=== PATIENT | male | born 1965 | race Two or more races ===

== ENCOUNTER → 2022-06-03 08:33 | Outpatient (CLI) | payer OTHER | END | disposition home or self-care (01) | LOC: LAB 08:33 | DX: B18.2 Chronic viral hepatitis C (principal) ==

== ENCOUNTER 2022-06-03 09:02 | Outpatient (CLI) | payer OTHER | END 2022-06-03 09:07 | disposition home or self-care (01) | LOC: SONOGRAMA 09:02 | DX: B18.2 Chronic viral hepatitis C (principal) ==

== ENCOUNTER 2022-08-22 08:56 | Outpatient (CLI) | payer OTHER | END 2022-08-22 09:04 | disposition home or self-care (01) | LOC: LAB 08:56 | DX: I70.0 Atherosclerosis of aorta (principal); S80.911A Unspecified superficial injury of right knee, initial encounter ==

== ENCOUNTER 2024-05-08 08:00 | Outpatient (CLI) | payer OTHER ==
[~2024-05-08] VITALS: Ht 182.9 cm; Wt 99.8 kg
[2024-05-08] MEDS ORDERED: COZAAR100 MG PO (10:27)
[2024-05-08] MEDS ORDERED: METADONA PO (10:27)
[2024-05-08] MEDS ORDERED: ZEGERID 40 MG1 EACH PO (10:27)
[2024-05-08 10:31] VITALS: BP 153/82
[2024-05-15 10:14] LABS: RH POSITIVE
== END 2024-05-08 14:24 | disposition home or self-care (01) ==
LOC: EKG 08:00 → LAB 08:00 → SURH 05-16 07:00 → EDSTATUS 05-16 11:45 → SURH 05-16 11:45 → LAB 06-03 11:24 → EDSTATUS 06-03 11:45 → SURH 06-03 11:45
PROVIDERS: ATTEND Orthopaedic Surgery
DX: M17.12 Unilateral primary osteoarthritis, left knee (principal)

== ENCOUNTER 2024-07-18 09:45 | Inpatient (IN) | payer OTHER ==
[~2024-07-18] VITALS: Ht 182.9 cm; Wt 98.0 kg
[~2024-07-18 09:45] MED LIST: COZAAR100 MG PO; METADONA PO; ZEGERID 40 MG1 EACH PO
[2024-07-18] MEDS ORDERED: JARDIANCE25 MG PO (10:54)
[2024-07-18] MEDS ORDERED: NIFEDIPINE20 MG PO (10:55)
[2024-07-18] MEDS ORDERED: OMEPRAZOLE40 MG PO (10:55)
[2024-07-18] MEDS ORDERED: GLUMETZA500 MG PO (10:55)
[2024-07-18 10:58] VITALS: BP 126/85
[2024-07-25] MEDS ORDERED: KETOROLAC TROMETHAMINE 60 MG VIAL IM ONE (12:00)
[2024-07-25] MEDS ORDERED: LIDOCAINE HCL 1%/EPINEPHRINE 20ML VIAL IJ ONE (12:00)
[2024-07-25] MEDS ORDERED: VANCOMYCIN HCL 1,000 MG in 0.9 % SODIUM CHLORIDE 250 ML IR ONE (12:00)
[2024-07-25] MEDS ORDERED: TRANEXAMIC ACID 1,000 MG in 0.9 % SODIUM CHLORIDE 100 ML IV ONE (12:00)
[2024-07-25] MEDS ORDERED: CEFAZOLIN SODIUM 2,000 MG in 0.9 % SODIUM CHLORIDE 100 ML IV ONE (12:00)
[2024-07-25] MEDS ORDERED: MORPHINE SULFATE 4 MG/ML VIAL IV ONE ×2 (12:00→13:20)
[2024-07-25] MEDS ORDERED: BUPIVACAINE HCL 30 ML VIAL IJ ONE (12:00)
[2024-07-25] MEDS ORDERED: MORPHINE SULFATE 4 MG/ML CARTRIDGE IV PRN (12:45)
[2024-07-25] MEDS ORDERED: SODIUM CHLORIDE 0.45 % 1,000 ML IV SCH (12:45)
[2024-07-25] MEDS ORDERED: ONDANSETRON HCL 2 MG/ML VIAL IV PRN (12:45)
[2024-07-25] MEDS ORDERED: OxyCODONE HCL 5 MG TABLET (ROXICODONE) PO PRN (12:45)
[2024-07-25] MEDS ORDERED: GABAPENTIN 300 MG CAPSULE PO ONE (16:58)
[2024-07-25] MEDS ORDERED: CEFAZOLIN SODIUM 1,000 MG VIAL ONE (16:58)
[2024-07-25] MEDS ORDERED: GABAPENTIN 300 MG CAPSULE PO SCH (17:00)
[2024-07-25] MEDS ORDERED: CEFAZOLIN SODIUM 1,000 MG VIAL IV SCH (17:00)
[2024-07-25] MEDS ORDERED: ACETAMINOPHEN 500 MG GEL..CAP PO SCH (18:00)
[2024-07-26 00:29] VITALS: BP 140/85; O2SAT 95
[2024-07-26] MEDS ORDERED: PERCOCET 5-3251 EACH PO (07:22)
[2024-07-26] MEDS ORDERED: CEFADROXIL500 MG PO (07:22)
[2024-07-26] MEDS ORDERED: ELIQUIS2.5 MG PO (07:22)
[2024-07-26 08:00] VITALS: BP 150/90; O2SAT 95
[2024-07-26] MEDS ORDERED: APIXABAN 2.5 MG TABLET PO SCH (09:00)
[2024-07-26] MEDS ORDERED: SENNOSIDES 1 TAB TABLET PO SCH (09:00)
[2024-07-26 09:30] LABS: HEMATOCRIT 34.2 % (39.0-48.0); HEMOGLOBIN 11.3 g/dL (13-16.00); MEAN CORPUSCULAR HEMOGLOBIN 32.2 pg (27.00-32.0); MEAN CORPUSCULAR HGB CONC 32.9 g/dl (32.0-36.0); PLATELET COUNT 204 K/uL (150-450); RED BLOOD COUNT 3.49 M/uL (4.00-6.00); RED CELL DISTRIBUTION WIDTH 13.9 % (11.5-14.5)
[2024-07-26] MEDS ORDERED: INSULIN LISPRO 1,000 UNIT/10 ML UNITS SUBCUTANEO PRN (12:45)
[2024-07-26] MEDS ORDERED: DEXTROSE 50 % IN WATER 0.5 G/ML DISP.SYRIN IV PRN (12:45)
[2024-07-26] MEDS ORDERED: ENALAPRILAT DIHYDRATE 1.25 MG/ML VIAL IV PRN (12:45)
[2024-07-26] MEDS ORDERED: LOSARTAN POTASSIUM 100 MG TABLET PO NR (13:00)
[2024-07-26] MEDS ORDERED: NIFEDIPINE 20 MG CAPSULE PO NR (13:00)
[2024-07-26 13:08] LABS: ALBUMIN 2.6 gm/dL (3.4-5.0); BILIRUBIN TOTAL 0.65 mg/dL (0.3-1.2); CALCIUM 8.6 mg/dL (8.5-10.1); CREATININE SERUM 1.07 mg/dL (0.70-1.30); GFR 70.74; GLOBULINA 4.2 G/DL (2.4-3.5); POTASSIUM 4.48 mEq/L (3.5-5.1); TOTAL PROTEIN 6.8 gm/dL (6.4-8.2)
[2024-07-26] MEDS ORDERED: TAMSULOSIN HCL 0.4 MG CAP PO STA (14:56)
[2024-07-26] MEDS ORDERED: VITAMIN B COMPLEX 1 EACH PO SCH (17:00)
[2024-07-26] MEDS ORDERED: SOD FERRIC GLUC COMPLX/SUCROSE 62.5 MG/5 ML AMPUL IV SCH (17:00)
[2024-07-26] MEDS ORDERED: THIAMINE HCL 100 MG TABLET PO NR (17:00)
[2024-07-26] MEDS ORDERED: Cyanocobalamin/Mecobalamin 1 TAB.SL SL NR (17:00)
[2024-07-26 17:08] VITALS: BP 145/85; O2SAT 95
[2024-07-26] MEDS ORDERED: FAMOTIDINE/PF 20 MG/2 ML VIAL ONE (20:46)
[2024-07-26] MEDS ORDERED: FAMOTIDINE/PF 20 MG in 0.9 % SODIUM CHLORIDE 8 ML IV PUSH SCH (21:00)
[2024-07-27 00:36] VITALS: BP 156/89; O2SAT 100
[2024-07-27 08:50] LABS: HEMATOCRIT 35.3 % (39.0-48.0); HEMOGLOBIN 11.6 g/dL (13-16.00); MEAN CELL VOLUME 98.1 fL (80.0-100.00); MEAN CORPUSCULAR HGB CONC 32.7 g/dl (32.0-36.0); PLATELET COUNT 180 K/uL (150-450); RED CELL DISTRIBUTION WIDTH 13.8 % (11.5-14.5)
[2024-07-27] MEDS ORDERED: IRON FUM,PS/FOLIC ACID/VITC/B3 1 CAP CAPSULE PO SCH (09:00)
[2024-07-27] MEDS ORDERED: THIAMINE HCL 100 MG TABLET PO SCH (09:00)
[2024-07-27] MEDS ORDERED: Cyanocobalamin/Mecobalamin 1 TAB.SL SL SCH (09:00)
[2024-07-27] MEDS ORDERED: NIFEDIPINE 20 MG CAPSULE PO SCH (09:00)
[2024-07-27] MEDS ORDERED: LOSARTAN POTASSIUM 100 MG TABLET PO SCH (09:00)
[2024-07-27 10:24] VITALS: BP 158/96; O2SAT 96
[2024-07-27 16:53] VITALS: BP 139/91; O2SAT 95
[2024-07-27] MEDS ORDERED: TAMSULOSIN HCL 0.4 MG CAP PO SCH (21:00)
== END 2024-07-27 19:43 | disposition home or self-care (01) | DRG 470 ==
LOC: O/R 07-25 05:40 → SURG 07-25 05:40 → O/R 07-27 14:59 → SURG 07-27 15:00
PROVIDERS: ADMIT Orthopaedic Surgery; ATTEND Orthopaedic Surgery
PROC: 0QUF0JZ Supplement Left Patella with Synthetic Substitute, Open Approach (ICD-10-PCS; 2024-07-25)
PROC: 0MNP0ZZ Release Left Knee Bursa and Ligament, Open Approach (ICD-10-PCS; 2024-07-25)
PROC: 0SRD0JZ Replacement of Left Knee Joint with Synthetic Substitute, Open Approach (ICD-10-PCS; principal; 2024-07-25 21:30)
DX: M17.12 Unilateral primary osteoarthritis, left knee (principal); D62 Acute posthemorrhagic anemia; E11.9 Type 2 diabetes mellitus without complications; I10 Essential (primary) hypertension; F11.90 Opioid use, unspecified, uncomplicated; Z96.652 Presence of left artificial knee joint; M22.12 Recurrent subluxation of patella, left knee